=== PATIENT | female | born 1950 | race Caucasian/White ===

== ENCOUNTER 2016-12-25 08:43 | Emergency (ER) | payer MEDICARE ==
[~2016-12-25] VITALS: Ht 167.6 cm; Wt 96.2 kg
[~2016-12-25 08:43] MED LIST: DIGO0.1262; DILT180C88; SOTA80TA
[2016-12-25 08:47] VITALS: BP 144/82
== END 2016-12-25 10:24 | disposition home or self-care (01) ==
LOC: ER 08:43
DX: S90.32XA Contusion of left foot, initial encounter (principal); I10 Essential (primary) hypertension; Z90.710 Acquired absence of both cervix and uterus; Z91.041 Radiographic dye allergy status; Z88.8 Allergy status to other drugs, medicaments and biological substances; W19.XXXA Unspecified fall, initial encounter; Y93.89 Activity, other specified; Y99.8 Other external cause status; Y92.89 Other specified places as the place of occurrence of the external cause
CPT/HCPCS: 73630

== ENCOUNTER 2017-05-27 22:50 | Emergency (ER) | payer MEDICARE ==
[~2017-05-27] VITALS: Ht 167.6 cm; Wt 93.0 kg
[2017-05-27 23:05] VITALS: BP 141/75
== END 2017-05-28 00:15 | disposition home or self-care (01) ==
LOC: ER 22:53
DX: S61.213A Laceration without foreign body of left middle finger without damage to nail, initial encounter (principal); I10 Essential (primary) hypertension; Z91.041 Radiographic dye allergy status; Z90.710 Acquired absence of both cervix and uterus; W45.8XXA Other foreign body or object entering through skin, initial encounter; Y93.89 Activity, other specified; Y92.89 Other specified places as the place of occurrence of the external cause; Y99.8 Other external cause status
CPT/HCPCS: 12002

== ENCOUNTER 2017-06-16 08:21 | Emergency (ER) | payer MEDICARE ==
[~2017-06-16] VITALS: Ht 167.6 cm; Wt 90.7 kg
[2017-06-16 08:34] VITALS: BP 158/66
== END 2017-06-16 09:11 | disposition home or self-care (01) ==
LOC: ER 08:21
DX: S80.02XA Contusion of left knee, initial encounter (principal); I10 Essential (primary) hypertension; Z91.041 Radiographic dye allergy status; Z88.8 Allergy status to other drugs, medicaments and biological substances; Z79.899 Other long term (current) drug therapy; W01.0XXA Fall on same level from slipping, tripping and stumbling without subsequent striking against object, initial encounter; Y93.89 Activity, other specified; Y92.89 Other specified places as the place of occurrence of the external cause; Y99.8 Other external cause status
CPT/HCPCS: 73562

== ENCOUNTER 2018-01-27 08:26 | Emergency (ER) | payer MEDICARE ==
[~2018-01-27] VITALS: Ht 167.6 cm; Wt 95.3 kg
[2018-01-27 08:52] VITALS: BP 133/69
== END 2018-01-27 10:39 | disposition home or self-care (01) ==
LOC: ER 08:26
DX: S96.812A Strain of other specified muscles and tendons at ankle and foot level, left foot, initial encounter (principal); I10 Essential (primary) hypertension; Z91.048 Other nonmedicinal substance allergy status; Z88.8 Allergy status to other drugs, medicaments and biological substances; Z79.899 Other long term (current) drug therapy; Z90.710 Acquired absence of both cervix and uterus; W20.8XXA Other cause of strike by thrown, projected or falling object, initial encounter; Y93.89 Activity, other specified; Y99.8 Other external cause status; Y92.89 Other specified places as the place of occurrence of the external cause
CPT/HCPCS: 73630

== ENCOUNTER 2018-02-21 08:23 | Emergency (ER) | payer MEDICARE ==
[~2018-02-21] VITALS: Ht 167.6 cm; Wt 95.3 kg
[2018-02-21 08:38] VITALS: BP 153/68
== END 2018-02-21 09:49 | disposition home or self-care (01) ==
LOC: ER 08:23
DX: M79.5 Residual foreign body in soft tissue (principal); I10 Essential (primary) hypertension; Z90.710 Acquired absence of both cervix and uterus; Z91.041 Radiographic dye allergy status

== ENCOUNTER 2018-03-13 09:03 | Emergency (ER) | payer MEDICARE ==
[~2018-03-13] VITALS: Ht 167.6 cm; Wt 94.8 kg
[2018-03-13 09:21] VITALS: BP 135/94
== END 2018-03-13 09:58 | disposition home or self-care (01) ==
LOC: ER 09:03
DX: S90.212A Contusion of left great toe with damage to nail, initial encounter (principal); I10 Essential (primary) hypertension; Z90.710 Acquired absence of both cervix and uterus; W20.8XXA Other cause of strike by thrown, projected or falling object, initial encounter; Y93.89 Activity, other specified; Y92.89 Other specified places as the place of occurrence of the external cause; Y99.8 Other external cause status

== ENCOUNTER 2018-07-14 08:26 | Emergency (ER) | payer MEDICARE ==
[~2018-07-14] VITALS: Ht 165.1 cm; Wt 93.0 kg
[2018-07-14 08:42] VITALS: BP 125/63
== END 2018-07-14 09:28 | disposition home or self-care (01) ==
LOC: ER 08:26
DX: S90.112A Contusion of left great toe without damage to nail, initial encounter (principal); I10 Essential (primary) hypertension; K21.9 Gastro-esophageal reflux disease without esophagitis; Z91.041 Radiographic dye allergy status; W22.8XXA Striking against or struck by other objects, initial encounter; Y93.89 Activity, other specified; Y92.89 Other specified places as the place of occurrence of the external cause; Y99.8 Other external cause status
CPT/HCPCS: 73630

== ENCOUNTER 2019-03-31 08:11 | Emergency (ER) | payer MEDICARE ==
[~2019-03-31] VITALS: Ht 167.6 cm; Wt 93.4 kg
[2019-03-31 08:29] VITALS: BP 156/57
== END 2019-03-31 08:50 | disposition home or self-care (01) ==
LOC: ER 08:15
DX: S90.32XA Contusion of left foot, initial encounter (principal); K21.9 Gastro-esophageal reflux disease without esophagitis; I10 Essential (primary) hypertension; Z90.710 Acquired absence of both cervix and uterus; W18.2XXA Fall in (into) shower or empty bathtub, initial encounter; Y93.E1 Activity, personal bathing and showering; Y92.091 Bathroom in other non-institutional residence as the place of occurrence of the external cause; Y99.8 Other external cause status
CPT/HCPCS: 73630

== ENCOUNTER 2019-04-14 08:06 | Emergency (ER) | payer MEDICARE ==
[~2019-04-14] VITALS: Ht 167.6 cm; Wt 94.8 kg
[2019-04-14 08:19] VITALS: BP 143/93
== END 2019-04-14 09:06 | disposition home or self-care (01) ==
LOC: ER 08:06
DX: S93.601A Unspecified sprain of right foot, initial encounter (principal); K21.9 Gastro-esophageal reflux disease without esophagitis; I10 Essential (primary) hypertension; Z90.710 Acquired absence of both cervix and uterus; W01.0XXA Fall on same level from slipping, tripping and stumbling without subsequent striking against object, initial encounter; Y93.89 Activity, other specified; Y92.89 Other specified places as the place of occurrence of the external cause; Y99.8 Other external cause status
CPT/HCPCS: 73630

== ENCOUNTER 2019-06-03 08:12 | Emergency (ER) | payer MEDICARE ==
[~2019-06-03] VITALS: Ht 165.1 cm; Wt 91.6 kg
[2019-06-03 08:18] VITALS: BP 137/85
== END 2019-06-03 09:18 | disposition home or self-care (01) ==
LOC: ER 08:13
DX: S60.453A Superficial foreign body of left middle finger, initial encounter (principal); K21.9 Gastro-esophageal reflux disease without esophagitis; I10 Essential (primary) hypertension; Z90.710 Acquired absence of both cervix and uterus; Z91.041 Radiographic dye allergy status; W22.8XXA Striking against or struck by other objects, initial encounter; Y93.E9 Activity, other interior property and clothing maintenance; Y92.098 Other place in other non-institutional residence as the place of occurrence of the external cause; Y99.8 Other external cause status
CPT/HCPCS: 10120

== ENCOUNTER 2019-10-25 08:54 | Emergency (ER) | payer MEDICARE ==
[~2019-10-25] VITALS: Ht 167.6 cm; Wt 92.5 kg
[2019-10-25 09:15] VITALS: BP 143/61
[2019-10-25] MEDS ORDERED: IBUPROFEN 400 MG TAB PO ONE (09:45)
== END 2019-10-25 10:05 | disposition home or self-care (01) ==
LOC: ER 08:54
DX: M79.672 Pain in left foot (principal); K21.9 Gastro-esophageal reflux disease without esophagitis; I10 Essential (primary) hypertension; Z90.710 Acquired absence of both cervix and uterus; W07.XXXA Fall from chair, initial encounter; Y93.89 Activity, other specified; Y92.89 Other specified places as the place of occurrence of the external cause; Y99.8 Other external cause status
CPT/HCPCS: 73630

== ENCOUNTER 2020-01-06 08:31 | Emergency (ER) | payer MEDICARE ==
[~2020-01-06] VITALS: Ht 170.2 cm; Wt 93.9 kg
[2020-01-06 08:45] VITALS: BP 130/58
== END 2020-01-06 10:00 | disposition home or self-care (01) ==
LOC: ER 08:31
DX: L20.9 Atopic dermatitis, unspecified (principal); K21.9 Gastro-esophageal reflux disease without esophagitis; I10 Essential (primary) hypertension; Z90.710 Acquired absence of both cervix and uterus; Z88.8 Allergy status to other drugs, medicaments and biological substances

== ENCOUNTER 2020-02-04 08:26 | Emergency (ER) | payer MEDICARE ==
[~2020-02-04] VITALS: Ht 167.6 cm; Wt 94.3 kg
[2020-02-04 08:36] VITALS: BP 141/69
== END 2020-02-04 10:07 | disposition home or self-care (01) ==
LOC: ER 08:26
DX: S50.12XA Contusion of left forearm, initial encounter (principal); K21.9 Gastro-esophageal reflux disease without esophagitis; I10 Essential (primary) hypertension; Z90.710 Acquired absence of both cervix and uterus; W22.8XXA Striking against or struck by other objects, initial encounter; Y93.01 Activity, walking, marching and hiking; Y92.89 Other specified places as the place of occurrence of the external cause; Y99.8 Other external cause status
CPT/HCPCS: 73090

== ENCOUNTER 2020-02-14 08:28 | Emergency (ER) | payer MEDICARE ==
[~2020-02-14] VITALS: Ht 167.6 cm; Wt 93.4 kg
[2020-02-14 09:03] VITALS: BP 147/59
== END 2020-02-14 10:09 | disposition home or self-care (01) ==
LOC: ER 08:28
DX: M25.562 Pain in left knee (principal); I10 Essential (primary) hypertension; K21.9 Gastro-esophageal reflux disease without esophagitis; Z79.899 Other long term (current) drug therapy; Z90.710 Acquired absence of both cervix and uterus; W19.XXXA Unspecified fall, initial encounter
CPT/HCPCS: 73562

== ENCOUNTER 2020-04-19 08:04 | Emergency (ER) | payer MEDICARE ==
[~2020-04-19] VITALS: Ht 167.6 cm; Wt 92.1 kg
[2020-04-19 08:11] VITALS: BP 128/62
== END 2020-04-19 08:56 | disposition home or self-care (01) ==
LOC: ER 08:04
DX: S00.83XA Contusion of other part of head, initial encounter (principal); K21.9 Gastro-esophageal reflux disease without esophagitis; I10 Essential (primary) hypertension; Z91.041 Radiographic dye allergy status; W01.10XA Fall on same level from slipping, tripping and stumbling with subsequent striking against unspecified object, initial encounter; Y93.89 Activity, other specified; Y92.091 Bathroom in other non-institutional residence as the place of occurrence of the external cause; Y99.8 Other external cause status

== ENCOUNTER 2020-05-29 08:08 | Emergency (ER) | payer MEDICARE ==
[~2020-05-29] VITALS: Ht 165.1 cm; Wt 89.4 kg
[2020-05-29 08:24] VITALS: BP 136/66
== END 2020-05-29 09:35 | disposition home or self-care (01) ==
LOC: ER 08:08
DX: S90.32XA Contusion of left foot, initial encounter (principal); K21.9 Gastro-esophageal reflux disease without esophagitis; I10 Essential (primary) hypertension; Z79.899 Other long term (current) drug therapy; Z88.8 Allergy status to other drugs, medicaments and biological substances; W20.8XXA Other cause of strike by thrown, projected or falling object, initial encounter; Y93.89 Activity, other specified; Y92.89 Other specified places as the place of occurrence of the external cause; Y99.8 Other external cause status
CPT/HCPCS: 73630

== ENCOUNTER 2021-01-11 08:03 | Emergency (ER) | payer MEDICARE ==
[~2021-01-11] VITALS: Ht 170.2 cm; Wt 93.0 kg
[2021-01-11 08:06] VITALS: BP 131/56
== END 2021-01-11 10:02 | disposition home or self-care (01) ==
LOC: ER 08:03
DX: S20.212A Contusion of left front wall of thorax, initial encounter (principal); I10 Essential (primary) hypertension; K21.9 Gastro-esophageal reflux disease without esophagitis; Z90.710 Acquired absence of both cervix and uterus; Z79.899 Other long term (current) drug therapy; Z88.8 Allergy status to other drugs, medicaments and biological substances; W01.0XXA Fall on same level from slipping, tripping and stumbling without subsequent striking against object, initial encounter; Y93.89 Activity, other specified; Y92.89 Other specified places as the place of occurrence of the external cause; Y99.8 Other external cause status
CPT/HCPCS: 71101

== ENCOUNTER 2021-03-23 08:18 | Emergency (ER) | payer MEDICARE ==
[~2021-03-23] VITALS: Ht 170.2 cm; Wt 93.9 kg
[2021-03-23 08:41] VITALS: BP 126/65
== END 2021-03-23 09:38 | disposition home or self-care (01) ==
LOC: ER 08:18
DX: M67.431 Ganglion, right wrist (principal); I10 Essential (primary) hypertension; K21.9 Gastro-esophageal reflux disease without esophagitis; Z90.710 Acquired absence of both cervix and uterus; Z79.899 Other long term (current) drug therapy; Z88.8 Allergy status to other drugs, medicaments and biological substances

== ENCOUNTER 2021-10-26 08:17 | Emergency (ER) | payer MEDICARE ==
[~2021-10-26] VITALS: Ht 170.2 cm; Wt 93.0 kg
[2021-10-26 08:21] VITALS: BP 124/50
== END 2021-10-26 08:43 | disposition home or self-care (01) ==
LOC: ER 08:17
DX: S30.1XXA Contusion of abdominal wall, initial encounter (principal); E11.9 Type 2 diabetes mellitus without complications; K21.9 Gastro-esophageal reflux disease without esophagitis; I10 Essential (primary) hypertension; Z90.710 Acquired absence of both cervix and uterus; X58.XXXA Exposure to other specified factors, initial encounter; Y93.89 Activity, other specified; Y92.89 Other specified places as the place of occurrence of the external cause; Y99.8 Other external cause status

== ENCOUNTER 2022-02-19 08:11 | Emergency (ER) | payer MEDICARE ==
[~2022-02-19] VITALS: Ht 167.6 cm; Wt 93.6 kg
[2022-02-19 10:13] VITALS: BP 134/73
== END 2022-02-19 10:49 | disposition home or self-care (01) ==
LOC: ER 08:11
DX: S61.213A Laceration without foreign body of left middle finger without damage to nail, initial encounter (principal); I10 Essential (primary) hypertension; E11.9 Type 2 diabetes mellitus without complications; K21.9 Gastro-esophageal reflux disease without esophagitis; Z90.710 Acquired absence of both cervix and uterus; Z79.899 Other long term (current) drug therapy; Z88.8 Allergy status to other drugs, medicaments and biological substances; Z91.041 Radiographic dye allergy status; W26.0XXA Contact with knife, initial encounter; Y93.89 Activity, other specified; Y92.89 Other specified places as the place of occurrence of the external cause; Y99.8 Other external cause status

== ENCOUNTER 2022-05-26 12:36 | Emergency (ER) | payer MEDICARE ==
[~2022-05-26] VITALS: Ht 167.6 cm; Wt 91.8 kg
[2022-05-26 15:57] VITALS: BP 140/75
== END 2022-05-26 16:36 | disposition home or self-care (01) ==
LOC: ER 12:49
DX: S61.011A Laceration without foreign body of right thumb without damage to nail, initial encounter (principal); K21.9 Gastro-esophageal reflux disease without esophagitis; I10 Essential (primary) hypertension; E11.9 Type 2 diabetes mellitus without complications; Z90.710 Acquired absence of both cervix and uterus; X58.XXXA Exposure to other specified factors, initial encounter; Y93.89 Activity, other specified; Y92.89 Other specified places as the place of occurrence of the external cause; Y99.8 Other external cause status
CPT/HCPCS: 12001

== ENCOUNTER 2022-07-12 07:57 | Emergency (ER) | payer MEDICARE ==
[~2022-07-12] VITALS: Ht 165.1 cm; Wt 91.8 kg
[2022-07-12 08:59] VITALS: BP 159/75
[2022-07-12] MEDS ORDERED: DILT180C52 PO (09:29)
== END 2022-07-12 09:58 | disposition home or self-care (01) ==
LOC: ER 07:57
DX: S60.212A Contusion of left wrist, initial encounter (principal); I10 Essential (primary) hypertension; Z76.0 Encounter for issue of repeat prescription; W18.39XA Other fall on same level, initial encounter; Y93.89 Activity, other specified; Y92.89 Other specified places as the place of occurrence of the external cause; Y99.8 Other external cause status
CPT/HCPCS: 73110